=== PATIENT | female | born 1970 | race African-American/Black ===

== ENCOUNTER 2018-07-05 09:16 | Emergency (ER) | payer SELFPAY ==
[~2018-07-05] VITALS: Ht 154.9 cm; Wt 61.8 kg
[2018-07-05 09:45] VITALS: Ht 154.9 cm; Wt 61.8 kg
[2018-07-05] MEDS ORDERED: CLEOCIN HCL300 MG PO (10:22)
[2018-07-05] MEDS ORDERED: TORADOL10 MG PO (10:22)
[2018-07-05 11:17] VITALS: BP 128/65
== END 2018-07-05 11:10 | disposition home or self-care (01) ==
LOC: D.ER 09:16
DX: K04.7 Periapical abscess without sinus (principal); F17.200 Nicotine dependence, unspecified, uncomplicated